=== PATIENT | female | born 1970 | race Caucasian/White ===

== ENCOUNTER 2017-09-17 23:05 | Emergency (ER) | payer SELFPAY ==
[~2017-09-17] VITALS: Ht 180.3 cm; Wt 60.0 kg
[2017-09-18 01:21] LABS: BASOPHILS % (AUTO) 0 % (0-1); EOSINOPHILS # (AUTO) 0.09 x10^3/uL (0-0.4); EOSINOPHILS % (AUTO) 1 % (1-7); LYMPHOCYTES # (AUTO) 1.29 x10^3/uL (1-3.4); LYMPHOCYTES % (AUTO) 11 % (22-44); MD NO; MEAN CORPUSCULAR HEMOGLOBIN 28.5 pg (27.0-34.8); MEAN CORPUSCULAR HGB CONC 33.6 g/dL (32.4-35.8); MEAN CORPUSCULAR VOLUME 84.7 fL (80-100); MEAN PLATELET VOLUME 6.9 fL (7.4-10.4); MONOCYTES # (AUTO) 0.66 x10^3/uL (0.2-0.8); MONOCYTES % (AUTO) 6 % (2-9); NEUTROPHILS # (AUTO) 9.65 x10^3/uL (1.8-6.8); NEUTROPHILS % (AUTO) 83 % (42-75); PLATELET COUNT 258 x10^3/uL (130-400); RED BLOOD COUNT 4.73 x10^6/uL (3.82-5.3); RED CELL DISTRIBUTION WIDTH 13.8 % (9.6-15.2)
[2017-09-18 01:32] LABS: ALBUMIN 3.6 g/dL (3.4-5.0); ANION GAP 5 mmol/L (5-15); CHLORIDE 104 mmol/L (98-107)
[2017-09-18] MEDS ORDERED: ALBUTEROL SULFATE 2.5 MG/3 ML NPPB ONE (02:30)
[2017-09-18] MEDS ORDERED: ALBUTEROL/IPRATROPIUM 2.5MG/0.5MG, 3 ML NEB ONE (02:30)
[2017-09-18] MEDS ORDERED: ALBUTEROL/IPRATROPIUM 2.5MG/0.5MG, 3 ML ONE (02:31)
[2017-09-18 03:10] VITALS: BP 112/71
== END 2017-09-18 03:30 | disposition home or self-care (01) ==
LOC: ED 09-18 03:10
DX: J20.9 Acute bronchitis, unspecified (principal)
CPT/HCPCS: 36415; 80048; 80307; 82040; 85025; 94640; 99284; J7620

== ENCOUNTER 2017-09-22 21:19 | Emergency (ER) | payer OTHER ==
[~2017-09-22] VITALS: Ht 175.3 cm; Wt 77.3 kg
[2017-09-22 21:21] VITALS: BP 109/75
[2017-09-22 22:18] LABS: RAPID INFLUENZA A Negative (Negative); RAPID INFLUENZA B Negative (Negative)
== END 2017-09-22 23:23 | disposition home or self-care (01) ==
LOC: ED 22:10
DX: J20.9 Acute bronchitis, unspecified (principal); R05 Cough
CPT/HCPCS: 71046; 87400; 99285

== ENCOUNTER 2018-10-18 02:33 | Emergency (ER) | payer SELFPAY ==
[~2018-10-18] VITALS: Ht 162.6 cm; Wt 70.0 kg
[2018-10-18 02:40] VITALS: BP 108/64
--- NOTE | 2018-10-18 03:17 | NUR ---
PT DIFFICULT TO AROUSE UPON ARRIVAL. PT DOZING HEAVILY. PT RESPONSIVE TO PAINFUL STIMULI. WHEN BEING ASKED QUESTIONS, PT STATES, I'M COLD. ABLE TO GET VITALS. PT REFUSING TO CHANGE INTO GOWN WHEN ASKED BY PA. PT NOT COOPERATING WITH ASSESSMENT QUESTIONS FROM THIS RN NOR PA. PT BEGAN KICKING FEET IN [facility] AND THRASHING BACK AND FORTH, STATING, "I'M SICK AND YOU'RE NOT HELPING ME". PT GIVEN A FEW MOMENTS TO COLLECT HERSELF. PT CURRENTLY COOPERATING WITH PUTING ON GOWN AND PHYSICAL ASSESSMENT. WILL CONTINUE TO MONITOR. PT GAVE FULL NAME AND BIRTHDAY FOR REG PURPOSES.
--- NOTE | 2018-10-18 04:02 | NUR ---
REVIEWED DC PAPERWORK WITH PT. PT REFUSING TO TAKE DC PAPERS. PT GIVEN TIME TO GET DRESSED, PT REFUSING. SECURITY CALLED TO ASSIST PT. WILL PROVIDE TAXI VOUCHER TO PT TO JAIL IF SHE WILL ACCEPT.
== END 2018-10-18 04:22 | disposition home or self-care (01) ==
LOC: EDBD 02:33 → MERGE 04:16 → ED 04:16
DX: J02.9 Acute pharyngitis, unspecified (principal); J04.0 Acute laryngitis; F17.210 Nicotine dependence, cigarettes, uncomplicated
CPT/HCPCS: 99283